=== PATIENT | male | born 1950 | race Caucasian/White ===

== ENCOUNTER 2019-01-10 10:55 | Day surgery (SDC) | payer MEDICARE, BC | END 2019-01-10 12:35 | disposition home or self-care (01) | LOC: CACL 10:55 | PROVIDERS: ATTEND Internal Medicine Cardiovascular Disease | DX: I63.9 Cerebral infarction, unspecified (principal); Q21.1 Atrial septal defect; E78.5 Hyperlipidemia, unspecified; K51.90 Ulcerative colitis, unspecified, without complications; E66.3 Overweight; Z68.23 Body mass index [BMI] 23.0-23.9, adult; Z79.82 Long term (current) use of aspirin; Z79.899 Other long term (current) drug therapy; Z83.3 Family history of diabetes mellitus; Z82.3 Family history of stroke; Z82.49 Family history of ischemic heart disease and other diseases of the circulatory system | CPT/HCPCS: 33285; C1764 ==